=== PATIENT | male | born 1945 | race Caucasian/White ===

== ENCOUNTER 2018-10-23 17:58 | Inpatient (IN) | payer OTHER ==
[2018-10-23 19:37] LABS: ADD MAN DIFF? NO
[2018-10-23 19:40] LABS: BASOPHIL # 0.1 10^3/ul (0.0-0.1); BASOPHILS % 1.3 % (0.0-2.0); EOSINOPHILS # 0.4 10^3/ul (0.0-0.5); EOSINOPHILS % 4.1 % (0.0-7.0); HEMATOCRIT 30.6 % (42.0-52.0); HEMOGLOBIN 10.7 g/dl (14.0-18.0); LYMPHOCYTES # 2.2 10^3/ul (0.8-2.9); LYMPHOCYTES % 23.6 % (15.0-51.0); MEAN CORPUSCULAR HEMOGLOBIN 30.7 pg (29.0-33.0); MEAN CORPUSCULAR VOLUME 87.9 fl (82.0-101.0); MEAN PLATELET VOLUME 9.9 fl (7.4-10.4); MONOCYTE # 0.7 10^3/ul (0.3-0.9); MONOCYTES % 7.9 % (0.0-11.0); NEUTROPHIL # 5.9 10^3/ul (1.6-7.5); NEUTROPHILS % 62.7 % (39.0-77.0); PLATELET COUNT 336 10^3/UL (140-415); RED BLOOD COUNT 3.48 10^6/ul (4.70-6.10); RED CELL DISTRIBUTION WIDTH 11.7 % (11.5-14.5)
[2018-10-23 19:40] LABS: WHITE BLOOD COUNT 9.4 10^3/ul (4.8-10.8)
[2018-10-23 19:44] LABS: ADD UMIC YES; UR ASCORBIC ACID NEGATIVE (NEGATIVE); UR BILIRUBIN (Dip) NEGATIVE (NEGATIVE); UR BLOOD (Dip) NEGATIVE (NEGATIVE); UR CLARITY CLEAR (CLEAR); UR COLOR STRAW (YELLOW); UR GLUCOSE (Dip) 3+ mg/dL (NEGATIVE); UR KETONES (Dip) NEGATIVE (NEGATIVE); UR LEUKOCYTE ESTERASE (Dip) NEGATIVE Leu/ul (NEGATIVE); UR NITRITE (Dip) NEGATIVE (NEGATIVE); UR RBC 1 /HPF (0-5); UR SPECIFIC GRAVITY (Dip) 1.022 (1.003-1.030); UR TOTAL PROTEIN (Dip) 1+ mg/dl (NEGATIVE); UR UROBILINOGEN (Dip) NEGATIVE (NEGATIVE); UR WBC 1 /HPF (0-5)
[2018-10-23] MEDS: SOD CHLORIDE 0.9% 520 ML IV (19:53)
[2018-10-23 19:59] LABS: ANION GAP 19 (5-13); BLOOD UREA NITROGEN 55 mg/dl (7-20); CALCIUM 9.9 mg/dl (8.4-10.2); CARBON DIOXIDE 19 mmol/L (21-31); CHLORIDE 89 mmol/L (97-110); CREATININE 2.18 mg/dl (0.61-1.24); MAGNESIUM 2.1 mg/dl (1.7-2.5); PHOSPHORUS 4.4 mg/dl (2.5-4.9); POTASSIUM 5.1 mmol/L (3.5-5.1); SODIUM 127 mmol/L (135-144)
[2018-10-23 20:06] LABS: INR 0.87; PROTIME 11.9 Sec (11.9-14.9); PT RATIO 0.9
[2018-10-23] MEDS ORDERED: NS + KCL 30 MEQ 1,000 ML IV (20:08)
[2018-10-23] MEDS ORDERED: NS + KCL 40 MEQ 1,000 ML IV (20:08)
[2018-10-23] MEDS ORDERED: D10/0.45% NACL + KCL 40 MEQ 1,000 ML IV (20:08)
[2018-10-23] MEDS ORDERED: D10/0.45% NACL + KCL 30 MEQ 1,000 ML IV (20:08)
[2018-10-23] MEDS ORDERED: SOD CHLORIDE 0.9% 1,000 ML IV (20:08)
[2018-10-23] MEDS ORDERED: DEXTROSE 10 %/0.45 % NACL 1,000 ML IV (20:08)
[2018-10-23 20:10] LABS: TROPONIN-I < 0.012 ng/ml (0.000-0.120)
[2018-10-23 20:12] LABS: GLUCOSE 887 mg/dl (70-220)
[2018-10-23] MEDS ORDERED: INSULIN REGULAR, HUMAN 100 UNIT in SOD CHLORIDE 0.9% 100 ML IV (20:30)
[2018-10-23] MEDS ORDERED: DEXTROSE 50% 50 ML SYRINGE IV ×2 (20:30)
[2018-10-23] MEDS: LACTATED RINGER'S 520 ML IV (20:33)
[2018-10-23 20:45] LABS: MODE ROOM AIR; MetHgb Venous 0.5 %; Sample Type Blood venous; Site VENOUS LINE; Venous COHb 0.2 %; Venous Fraction OxyHgb 35.5 %; Venous Oxygen Sat 35.8 mmHG (55.0-75.0); Venous Total Hemglobin 10.4 g/dl
[2018-10-23] MEDS ORDERED: ONDANSETRON 4 MG INJ IV (22:00)
[2018-10-23] MEDS ORDERED: NS + KCL 20 MEQ 1,000 ML IV (22:00)
[2018-10-23 22:20] LABS: HEMOGLOBIN A1C 13.7 % (0-5.9)
[2018-10-23 22:39] LABS: ANION GAP 14 (5-13); BLOOD UREA NITROGEN 44 mg/dl (7-20); CALCIUM 7.4 mg/dl (8.4-10.2); CARBON DIOXIDE 19 mmol/L (21-31); CHLORIDE 99 mmol/L (97-110); CREATININE 1.55 mg/dl (0.61-1.24); MAGNESIUM 1.7 mg/dl (1.7-2.5); PHOSPHORUS 3.5 mg/dl (2.5-4.9); POTASSIUM 5.2 mmol/L (3.5-5.1); SODIUM 132 mmol/L (135-144)
[2018-10-23 22:41] LABS: GLUCOSE 551 mg/dl (70-220)
[2018-10-24] MEDS: LISINOPRIL 20 MG TAB PO ×2 (00:15→09:20)
[2018-10-24] MEDS: hydrALAzine 20 MG INJ IV (00:16)
[2018-10-24] MEDS: SOD CHLORIDE 0.9% 1,000 ML IV (00:17)
[2018-10-24] MEDS ORDERED: GLUCAGON 1 MG INJ IM (00:30)
[2018-10-24] MEDS ORDERED: GLUCOSE GEL 15 GRAM TUBE PO ×2 (00:30)
[2018-10-24] MEDS ORDERED: DEXTROSE 50% 50 ML SYRINGE IV ×2 (00:30)
[2018-10-24] MEDS ORDERED: GLUCOSE GEL 15 GRAM TUBE BUCCAL (00:30)
[2018-10-24 00:59] LABS: ANION GAP 15 (5-13); BLOOD UREA NITROGEN 45 mg/dl (7-20); CALCIUM 8.8 mg/dl (8.4-10.2); CARBON DIOXIDE 23 mmol/L (21-31); CHLORIDE 97 mmol/L (97-110); CREATININE 1.77 mg/dl (0.61-1.24); MAGNESIUM 1.9 mg/dl (1.7-2.5); PHOSPHORUS 3.8 mg/dl (2.5-4.9); POTASSIUM 4.2 mmol/L (3.5-5.1); SODIUM 135 mmol/L (135-144)
[2018-10-24 01:07] LABS: GLUCOSE 484 mg/dl (70-220)
[2018-10-24] MEDS: INSULIN ASPART [NOVOLOG] 3 ML PEN SC ×3 (01:26→12:30)
[2018-10-24] MEDS: INSULIN GLARGINE [LANTus] (100 UNITS/ML) SYG SC (01:27)
[2018-10-24] MEDS: ACCU-CHEK XX (02:00)
[2018-10-24 03:45] LABS: ANION GAP 19 (5-13); BLOOD UREA NITROGEN 44 mg/dl (7-20); CARBON DIOXIDE 18 mmol/L (21-31); CHLORIDE 104 mmol/L (97-110); CREATININE 2.04 mg/dl (0.61-1.24); GLUCOSE 119 mg/dl (70-220); PHOSPHORUS 2.6 mg/dl (2.5-4.9); POTASSIUM 3.4 mmol/L (3.5-5.1); SODIUM 141 mmol/L (135-144)
[2018-10-24 03:51] LABS: LACTIC ACID 5.4 mmol/L (0.5-2.0)
[2018-10-24 03:56] LABS: CREATINE KINASE 84 IU/L (23-200)
[2018-10-24 04:09] LABS: CK INDEX 1.3; CK-MB 1.05 ng/ml (0.0-2.4); TROPONIN-I < 0.012 ng/ml (0.000-0.120)
[2018-10-24 06:12] LABS: ANION GAP 13 (5-13); BLOOD UREA NITROGEN 42 mg/dl (7-20); CALCIUM 8.5 mg/dl (8.4-10.2); CARBON DIOXIDE 21 mmol/L (21-31); CHLORIDE 107 mmol/L (97-110); CREATININE 1.92 mg/dl (0.61-1.24); MAGNESIUM 1.9 mg/dl (1.7-2.5); PHOSPHORUS 2.5 mg/dl (2.5-4.9); POTASSIUM 3.3 mmol/L (3.5-5.1); SODIUM 141 mmol/L (135-144)
[2018-10-24 06:15] LABS: GLUCOSE 45 mg/dl (70-220)
[2018-10-24 09:30] LABS: LACTIC ACID 2.2 mmol/L (0.5-2.0)
[2018-10-24 12:30] LABS: CREATINE KINASE 91 IU/L (23-200)
[2018-10-24 12:31] LABS: ANION GAP 14 (5-13); BLOOD UREA NITROGEN 39 mg/dl (7-20); CALCIUM 8.9 mg/dl (8.4-10.2); CARBON DIOXIDE 22 mmol/L (21-31); CHLORIDE 102 mmol/L (97-110); CREATININE 1.72 mg/dl (0.61-1.24); GLUCOSE 205 mg/dl (70-220); MAGNESIUM 1.9 mg/dl (1.7-2.5); PHOSPHORUS 3.6 mg/dl (2.5-4.9); SODIUM 138 mmol/L (135-144)
[2018-10-24 12:42] LABS: CK INDEX 1.6; CK-MB 1.42 ng/ml (0.0-2.4); TROPONIN-I 0.034 ng/ml (0.000-0.120)
[2018-10-26] MEDS ORDERED: INFLUENZA VIRUS VACCINE 0.5 ML (DISPENSING) IM* (09:00)
== END 2018-10-24 13:25 | disposition home or self-care (01) | DRG 638 ==
LOC: ICU 10-24 04:00 → E/R 17:58 → 6WM 20:49
PROVIDERS: Internal Medicine
DX: E11.65 Type 2 diabetes mellitus with hyperglycemia (principal); N17.9 Acute kidney failure, unspecified; Z79.4 Long term (current) use of insulin; I12.9 Hypertensive chronic kidney disease with stage 1 through stage 4 chronic kidney disease, or unspecified chronic kidney disease; N18.3 Chronic kidney disease, stage 3 (moderate); Z91.11 Patient's noncompliance with dietary regimen; Z91.19 Patient's noncompliance with other medical treatment and regimen; R55 Syncope and collapse; M54.2 Cervicalgia
CPT/HCPCS: 36415; 70450; 72125; 80048; 81001; 82550; 82553; 82803; 82962; 83036; 83605; 83735; 84100; 84484; 85025; 85610; 87040; 93005; 96360; 96361; 99285-25

== ENCOUNTER 2019-01-09 17:46 | Emergency (ER) | payer OTHER ==
[2019-01-09] MEDS: SOD CHLORIDE 0.9% 550 ML IV (18:30)
[2019-01-09 18:56] LABS: ADD MAN DIFF? NO; MODE ROOM AIR; MetHgb Venous 0.2 %; Sample Type Blood venous; Site VENOUS LINE; Venous COHb 0.3 %; Venous Oxygen Sat 55.3 mmHG (55.0-75.0); Venous Total Hemglobin 9.6 g/dl
[2019-01-09 19:08] LABS: WHITE BLOOD COUNT 10.5 10^3/ul (4.8-10.8)
[2019-01-09 19:08] LABS: BASOPHIL # 0.1 10^3/ul (0.0-0.1); BASOPHILS % 0.9 % (0.0-2.0); EOSINOPHILS # 0.4 10^3/ul (0.0-0.5); EOSINOPHILS % 3.7 % (0.0-7.0); HEMATOCRIT 25.9 % (42.0-52.0); HEMOGLOBIN 8.7 g/dl (14.0-18.0); LYMPHOCYTES # 1.7 10^3/ul (0.8-2.9); LYMPHOCYTES % 15.8 % (15.0-51.0); MEAN CORPUSCULAR HEMOGLOBIN 30.2 pg (29.0-33.0); MEAN CORPUSCULAR HGB CONC 33.6 g/dl (32.0-37.0); MEAN CORPUSCULAR VOLUME 89.9 fl (82.0-101.0); MEAN PLATELET VOLUME 9.2 fl (7.4-10.4); MONOCYTES % 9.8 % (0.0-11.0); NEUTROPHIL # 7.3 10^3/ul (1.6-7.5); NEUTROPHILS % 69.4 % (39.0-77.0); PLATELET COUNT 319 10^3/UL (140-415); RED BLOOD COUNT 2.88 10^6/ul (4.70-6.10)
[2019-01-09 19:27] LABS: ALBUMIN 4.1 g/dl (3.3-4.9); ALBUMIN/GLOBULIN RATIO 1.24; ALKALINE PHOSPHATASE 129 IU/L (42-121); ANION GAP 11 (5-13); ASPARTATE AMINO TRANSFERASE 14 IU/L (15-46); BILIRUBIN,INDIRECT 0.4 mg/dl (0-1.1); BILIRUBIN,TOTAL 0.4 mg/dl (0.2-1.3); BLOOD UREA NITROGEN 33 mg/dl (7-20); CALCIUM 9.1 mg/dl (8.4-10.2); CARBON DIOXIDE 19 mmol/L (21-31); CHLORIDE 102 mmol/L (97-110); CREATININE 2.11 mg/dl (0.61-1.24); LIPASE 172 U/L (23-300); MAGNESIUM 2.1 mg/dl (1.7-2.5); POTASSIUM 4.9 mmol/L (3.5-5.1); SODIUM 132 mmol/L (135-144); TOTAL PROTEIN 7.4 g/dl (6.1-8.1)
[2019-01-09 19:40] LABS: ALANINE AMINOTRANSFERASE < 6 IU/L (13-69); GLUCOSE 635 mg/dl (70-220)
[2019-01-09] MEDS: INSULIN LISPRO 100 UNIT/ML VIAL SC (20:27)
[2019-01-09] MEDS: ACETAMINOPHEN 325 MG TAB PO (20:56)
[2019-01-09] MEDS: SOD CHLORIDE 0.9% 500 ML IV (20:56)
== END 2019-01-09 21:32 | disposition home or self-care (01) ==
LOC: E/R 17:46
DX: E11.65 Type 2 diabetes mellitus with hyperglycemia (principal); D64.9 Anemia, unspecified; I12.9 Hypertensive chronic kidney disease with stage 1 through stage 4 chronic kidney disease, or unspecified chronic kidney disease; N18.9 Chronic kidney disease, unspecified; Z79.4 Long term (current) use of insulin
CPT/HCPCS: 36415; 80053; 82803; 82962; 83690; 83735; 84100; 85025; 96372; 99284-25